=== PATIENT | female | born 1955 | race Caucasian/White ===

== ENCOUNTER → 2017-09-28 | Emergency (ER) | payer MEDICAID, OTHER ==
[~2017-09-28] VITALS: Ht 154.9 cm; Wt 74.8 kg
[~2017-09-28] MED LIST: ALPR-624 PO; LISI40TA4 PO; MELO-100 PO; PER10325T PO; normal saline 1000ML IV soln IVB ONE; ondansetron/PF 4mg/2ml inj IV ONE; oxyCODONE/APAP 10/325mg tablet PO ONE
[2017-09-28 15:04] LABS: ALANINE AMINOTRANSFERASE 75 U/L (12-78); ALBUMIN 3.6 G/DL (3.4-5.0); ALBUMIN/GLOBULIN RATIO 0.7 (1.1-1.5); ALKALINE PHOSPHATASE 51 IU/L (46-116); ANION GAP 11 (8-16); ASPARTATE AMINO TRANSFERASE 37 U/L (10-37); BILIRUBIN,TOTAL 0.3 MG/DL (0.1-1.0); BLOOD UREA NITROGEN 17 MG/DL (7-18); BUN/CREATININE RATIO 18.9 (6.6-38.0); CALCIUM 9.8 MG/DL (8.5-10.1); CHLORIDE 98 MMOL/L (99-107); GLUCOSE 165 MG/DL (70-104); LIPASE 188 U/L (73-393); POTASSIUM 4.6 MMOL/L (3.5-5.1); SODIUM 137 MMOL/L (135-145); TOTAL CARBON DIOXIDE 28.4 MMOL/L (24-32); TOTAL PROTEIN 8.8 G/DL (6.4-8.2); eGFR 64 ML/MIN
[2017-09-28 15:07] LABS: BASOPHILS # (AUTO) 0.1 X10'3 (0-0.2); BASOPHILS % (AUTO) 0.6 % (0-1); EOSINOPHILS # (AUTO) 0.2 X10'3 (0-0.9); EOSINOPHILS % (AUTO) 1.3 % (0-6); HEMATOCRIT 49.6 % (35.0-45.0); HEMOGLOBIN 17.1 g/dl (12.0-16.0); LYMPHOCYTES # (AUTO) 3.1 X10'3 (1.1-4.8); LYMPHOCYTES % (AUTO) 19.8 % (21-51); MEAN CORPUSCULAR HEMOGLOBIN 30.2 PG (27.0-31.0); MEAN CORPUSCULAR HGB CONC 34.6 % (33.0-36.5); MEAN CORPUSCULAR VOLUME 87.3 FL (78-98); MEAN PLATELET VOLUME 10.5 FL (7.4-10.4); MONOCYTES # (AUTO) 1.3 X10'3 (0-0.9); NEUTROPHILS # (AUTO) 11.1 X10'3 (1.8-7.7); NEUTROPHILS % (AUTO) 70.3 % (42-75); RED BLOOD COUNT 5.68 X10'6 (4.20-5.60); RED CELL DISTRIBUTION WIDTH 13.3 % (11.5-14.5); WHITE BLOOD COUNT 15.8 X10'3 (4.5-11.0)
[2017-09-28 15:53] LABS: PLATELET COUNT 192 X10'3 (140-440)
[2017-09-28 16:24] VITALS: BP 138/75
== END | disposition home or self-care (01) ==
LOC: ER 11:59
DX: F11.23 Opioid dependence with withdrawal (principal); M54.9 Dorsalgia, unspecified; R11.10 Vomiting, unspecified; I10 Essential (primary) hypertension; G89.29 Other chronic pain; E11.9 Type 2 diabetes mellitus without complications; M19.90 Unspecified osteoarthritis, unspecified site; Z90.710 Acquired absence of both cervix and uterus; Z90.49 Acquired absence of other specified parts of digestive tract; Z98.890 Other specified postprocedural states; Z87.891 Personal history of nicotine dependence; Z79.899 Other long term (current) drug therapy; Z56.0 Unemployment, unspecified
CPT/HCPCS: 36415; 80053; 82948; 83690; 85025; 96361; 96374; 99285; J2405; J7030

== ENCOUNTER 2017-10-10 09:31 | Emergency (ER) | payer MEDICAID, OTHER ==
[~2017-10-10] VITALS: Ht 154.9 cm; Wt 72.0 kg
[~2017-10-10 09:31] MED LIST changes: -normal saline 1000ML IV soln IVB ONE; -ondansetron/PF 4mg/2ml inj IV ONE; -oxyCODONE/APAP 10/325mg tablet PO ONE
[2017-10-10 10:00] LABS: BASOPHILS % (AUTO) 0.4 % (0-1); EOSINOPHILS # (AUTO) 0.2 X10'3 (0-0.9); EOSINOPHILS % (AUTO) 1.6 % (0-6); HEMATOCRIT 45.5 % (35.0-45.0); HEMOGLOBIN 15.6 g/dl (12.0-16.0); LYMPHOCYTES # (AUTO) 2.8 X10'3 (1.1-4.8); LYMPHOCYTES % (AUTO) 25.2 % (21-51); MEAN CORPUSCULAR HEMOGLOBIN 29.9 PG (27.0-31.0); MEAN CORPUSCULAR HGB CONC 34.3 % (33.0-36.5); MEAN CORPUSCULAR VOLUME 87.2 FL (78-98); MEAN PLATELET VOLUME 9.2 FL (7.4-10.4); MONOCYTES # (AUTO) 0.8 X10'3 (0-0.9); MONOCYTES % (AUTO) 7.2 % (2-12); NEUTROPHILS # (AUTO) 7.2 X10'3 (1.8-7.7); NEUTROPHILS % (AUTO) 65.6 % (42-75); PLATELET COUNT 243 X10'3 (140-440); RED BLOOD COUNT 5.21 X10'6 (4.20-5.60); RED CELL DISTRIBUTION WIDTH 13.5 % (11.5-14.5)
[2017-10-10 10:09] LABS: PARTIAL THROMBOPLASTIN TIME 24 SECONDS (22-32); PROTHROMBIN TIME 10.2 SECONDS (9.0-12.0)
[2017-10-10 10:13] LABS: ALANINE AMINOTRANSFERASE 59 U/L (12-78); ALBUMIN 3.7 G/DL (3.4-5.0); ALBUMIN/GLOBULIN RATIO 0.7 (1.1-1.5); ALKALINE PHOSPHATASE 53 IU/L (46-116); ANION GAP 8 (8-16); ASPARTATE AMINO TRANSFERASE 32 U/L (10-37); BILIRUBIN,TOTAL 0.3 MG/DL (0.1-1.0); BLOOD UREA NITROGEN 21 MG/DL (7-18); BUN/CREATININE RATIO 24.4 (6.6-38.0); CALCIUM 10.4 MG/DL (8.5-10.1); CHLORIDE 94 MMOL/L (99-107); CREATININE 0.86 MG/DL (0.40-0.90); GLUCOSE 247 MG/DL (70-104); POTASSIUM 4.3 MMOL/L (3.5-5.1); SODIUM 134 MMOL/L (135-145); TOTAL CARBON DIOXIDE 31.8 MMOL/L (24-32); TOTAL PROTEIN 8.8 G/DL (6.4-8.2); eGFR 67 ML/MIN
[2017-10-10] MEDS ORDERED: famotidine/PF 10 mg/ml inj IV ONE (11:30)
[2017-10-10] MEDS ORDERED: normal saline 1000ML IV soln IVB ONE (11:30)
[2017-10-10] MEDS ORDERED: oxyCODONE/APAP 10/325mg tablet PO ONE (11:30)
[2017-10-10] MEDS ORDERED: ondansetron 4mg rapidly disintigrating tab PO ONE (11:30)
[2017-10-10] MEDS ORDERED: LORazepam 2 mg/ml vial IV ONE (11:30)
[2017-10-10 13:08] LABS: CLARITY,URINE CLOUDY (Clear); COLOR,URINE YELLOW (Yellow); GLUCOSE, URINE NEGATIVE (Neg); KETONES,URINE NEGATIVE (Neg); LEUKOCYTE ESTERASE ,URINE NEGATIVE (Neg); NITRITES, URINE NEGATIVE (Neg); OCCULT BLOOD,URINE NEGATIVE (Neg); PH,URINE 5.5 (4.8-8.0); PROTEIN,URINE 100 mg/dl (Neg); UROBILINOGEN,URINE 0.2 E.U/dL (0.2-1.0)
[2017-10-10 13:19] LABS: SQUAMOUS EPITHELIAL CELL,UR MANY /LPF (FEW); UA COLLECTION TYPE CLN CATCH MIDSTREAM
[2017-10-10 13:20] LABS: BACTERIA,URINE 1+ /HPF (Neg); RBC,URINE 0-2 /HPF (0-2); WBC,URINE 0-4 /HPF (0-4)
[2017-10-10 14:17] VITALS: BP 117/76
== END 2017-10-10 14:19 | disposition home or self-care (01) ==
LOC: ER 09:31
DX: R11.2 Nausea with vomiting, unspecified (principal); R07.9 Chest pain, unspecified; M25.552 Pain in left hip; M54.9 Dorsalgia, unspecified; M54.2 Cervicalgia; M25.511 Pain in right shoulder; I10 Essential (primary) hypertension; G89.29 Other chronic pain; E11.9 Type 2 diabetes mellitus without complications; M19.90 Unspecified osteoarthritis, unspecified site; Z90.710 Acquired absence of both cervix and uterus; Z90.49 Acquired absence of other specified parts of digestive tract; Z87.891 Personal history of nicotine dependence; Z79.899 Other long term (current) drug therapy; Z56.0 Unemployment, unspecified
CPT/HCPCS: 36415; 71045; 80053; 81001; 84484; 85025; 85610; 85730; 93005; 96361; 96374; 96375; 99285; J2060; J3490; J7030

== ENCOUNTER 2017-11-28 08:46 | Emergency (ER) | payer MEDICAID ==
[~2017-11-28] VITALS: Ht 154.9 cm; Wt 83.5 kg
[2017-11-28] MEDS ORDERED: HYDROcodone/acetaminophen 10/325mg tab PO ONE (10:25)
[2017-11-28] MEDS ORDERED: CYCL-1 PO (10:32)
[2017-11-28] MEDS ORDERED: TRAM50TA2 PO (10:32)
[2017-11-28 10:56] VITALS: BP 136/86
== END 2017-11-28 10:57 | disposition home or self-care (01) ==
LOC: ER 08:46
DX: M54.5 Low back pain (principal); M25.562 Pain in left knee; N39.41 Urge incontinence; M79.89 Other specified soft tissue disorders; E11.9 Type 2 diabetes mellitus without complications; I10 Essential (primary) hypertension; G89.29 Other chronic pain; M19.90 Unspecified osteoarthritis, unspecified site; Z90.49 Acquired absence of other specified parts of digestive tract; Z90.710 Acquired absence of both cervix and uterus; Z98.890 Other specified postprocedural states; Z88.6 Allergy status to analgesic agent; Z79.899 Other long term (current) drug therapy; Z56.0 Unemployment, unspecified
CPT/HCPCS: 99284

== ENCOUNTER 2018-06-09 08:14 | Emergency (ER) | payer MEDICAID ==
[~2018-06-09] VITALS: Ht 154.9 cm; Wt 88.0 kg
[~2018-06-09 08:14] MED LIST changes: +CYCL-1 PO
[2018-06-09 09:13] VITALS: BP 132/85
[2018-06-09] MEDS ORDERED: fluconazole 150mg tablet PO ONE (10:00)
[2018-06-09] MEDS ORDERED: FLUC200T PO (10:01)
== END 2018-06-09 10:30 | disposition home or self-care (01) ==
LOC: ER 08:15
DX: B37.9 Candidiasis, unspecified (principal); I10 Essential (primary) hypertension; E11.9 Type 2 diabetes mellitus without complications; G89.29 Other chronic pain; Z90.49 Acquired absence of other specified parts of digestive tract; Z90.710 Acquired absence of both cervix and uterus; Z98.890 Other specified postprocedural states; Z56.0 Unemployment, unspecified; Z88.8 Allergy status to other drugs, medicaments and biological substances; Z79.899 Other long term (current) drug therapy
CPT/HCPCS: 82948; 99283

== ENCOUNTER 2018-07-11 13:21 | Emergency (ER) | payer MEDICAID, OTHER ==
[~2018-07-11] VITALS: Ht 154.9 cm; Wt 84.9 kg
[~2018-07-11 13:21] MED LIST changes: +FLUC200T PO; +FLUC200T2 PO
[2018-07-11] MEDS ORDERED: insulin NPH/REG insulin (NovoLIN 70/30) 10ml vial SQ ONE (14:20)
[2018-07-11] MEDS ORDERED: insulin regular, human 10 units/0.1 ml syringe SQ ONE (14:35)
[2018-07-11] MEDS ORDERED: METO-292 PO (14:56)
[2018-07-11] MEDS ORDERED: INSU100I31 SQ (14:56)
[2018-07-11] MEDS ORDERED: ondansetron/PF 4mg/2ml inj IM ONE ×2 (15:00→15:05)
[2018-07-11] MEDS ORDERED: BISA-155 PO (15:03)
[2018-07-11] MEDS ORDERED: POLY17PO10 PO (15:03)
[2018-07-11 15:33] VITALS: BP 120/88
== END 2018-07-11 15:35 | disposition home or self-care (01) ==
LOC: ER 13:22
DX: K59.00 Constipation, unspecified (principal); I10 Essential (primary) hypertension; E11.9 Type 2 diabetes mellitus without complications; G89.29 Other chronic pain; Z90.49 Acquired absence of other specified parts of digestive tract; Z90.710 Acquired absence of both cervix and uterus; Z98.890 Other specified postprocedural states; Z56.0 Unemployment, unspecified; Z88.8 Allergy status to other drugs, medicaments and biological substances; Z79.4 Long term (current) use of insulin; Z79.899 Other long term (current) drug therapy
CPT/HCPCS: 82948; 93005; 96372; 99284; J1815; J2405

== ENCOUNTER 2018-07-23 03:25 | Emergency (ER) | payer MEDICAID, OTHER ==
[~2018-07-23] VITALS: Ht 154.9 cm; Wt 89.0 kg
[~2018-07-23 03:25] MED LIST changes: +BISA-155 PO; +INSU100I31 SQ; +METO-292 PO; +POLY17PO10 PO
[2018-07-23 03:47] LABS: CLARITY,URINE CLEAR (Clear); COLOR,URINE YELLOW (Yellow); GLUCOSE, URINE >=1000 mg/dl (Neg); KETONES,URINE NEGATIVE (Neg); LEUKOCYTE ESTERASE ,URINE NEGATIVE (Neg); NITRITES, URINE NEGATIVE (Neg); OCCULT BLOOD,URINE NEGATIVE (Neg); PROTEIN,URINE NEGATIVE (Neg); UROBILINOGEN,URINE 0.2 E.U/dL (0.2-1.0)
[2018-07-23 03:51] LABS: UA COLLECTION TYPE CLN CATCH MIDSTREAM
[2018-07-23 03:52] LABS: BACTERIA,URINE FEW /HPF (Neg); RBC,URINE NONE SEEN /HPF (0-2); SQUAMOUS EPITHELIAL CELL,UR FEW /LPF (FEW); WBC,URINE 0-4 /HPF (0-4)
[2018-07-23] MEDS ORDERED: normal saline 1000ML IV soln IVB ONE (04:00)
[2018-07-23 04:01] LABS: BASOPHILS % (AUTO) 0.4 % (0-1); EOSINOPHILS # (AUTO) 0.3 X10'3 (0-0.9); EOSINOPHILS % (AUTO) 2.6 % (0-6); HEMOGLOBIN 14.7 g/dl (12.0-16.0); LYMPHOCYTES # (AUTO) 2.9 X10'3 (1.1-4.8); LYMPHOCYTES % (AUTO) 25.8 % (21-51); MEAN CORPUSCULAR HEMOGLOBIN 28.6 PG (27.0-31.0); MEAN CORPUSCULAR HGB CONC 33.5 g/dL (33.0-36.5); MEAN CORPUSCULAR VOLUME 85.4 FL (78-98); MEAN PLATELET VOLUME 9.4 FL (7.4-10.4); MONOCYTES # (AUTO) 0.8 X10'3 (0-0.9); MONOCYTES % (AUTO) 7.5 % (2-12); NEUTROPHILS % (AUTO) 63.7 % (42-75); PLATELET COUNT 238 X10'3 (140-440); RED BLOOD COUNT 5.15 X10'6 (4.20-5.60); RED CELL DISTRIBUTION WIDTH 13.6 % (11.5-14.5); WHITE BLOOD COUNT 11.1 X10'3 (4.5-11.0)
[2018-07-23 04:08] LABS: URINE HCG NEGATIVE (NEG)
[2018-07-23 04:08] LABS: INR 1.1 INR; PROTHROMBIN TIME 10.9 SECONDS (9.0-12.0)
[2018-07-23 04:10] LABS: ALANINE AMINOTRANSFERASE 77 U/L (12-78); ALBUMIN 3.4 G/DL (3.4-5.0); ALBUMIN/GLOBULIN RATIO 0.8 (1.1-1.5); ALKALINE PHOSPHATASE 48 IU/L (46-116); ANION GAP 8 (8-16); ASPARTATE AMINO TRANSFERASE 41 U/L (10-37); BILIRUBIN,TOTAL 0.3 MG/DL (0.1-1.0); BLOOD UREA NITROGEN 20 MG/DL (7-18); BUN/CREATININE RATIO 20.8 (6.6-38.0); CALCIUM 10.1 MG/DL (8.5-10.1); CHLORIDE 94 MMOL/L (99-107); CREATININE 0.96 MG/DL (0.40-0.90); GLUCOSE 208 MG/DL (70-104); POTASSIUM 4.4 MMOL/L (3.5-5.1); SODIUM 133 MMOL/L (135-145); TOTAL PROTEIN 7.5 G/DL (6.4-8.2); eGFR 59 ML/MIN
[2018-07-23 04:22] LABS: ETHANOL < 0.010 GM/DL (0.0-0.010); LIPASE 254 U/L (73-393); MAGNESIUM 1.5 MG/DL (1.5-2.4)
[2018-07-23] MEDS ORDERED: DICY10CA88 PO (04:39)
[2018-07-23] MEDS ORDERED: PHE12.5T PO (04:39)
[2018-07-23 04:40] VITALS: BP 152/84
[2018-07-23] MEDS ORDERED: dicyclomine 10mg/ml 2ml ampule IM ONE (04:40)
[2018-07-23] MEDS ORDERED: ondansetron/PF 4mg/2ml inj IV ONE (05:00)
== END 2018-07-23 05:07 | disposition home or self-care (01) ==
LOC: ER 03:26
DX: E11.43 Type 2 diabetes mellitus with diabetic autonomic (poly)neuropathy (principal); K31.84 Gastroparesis; I10 Essential (primary) hypertension; G89.29 Other chronic pain; Z90.49 Acquired absence of other specified parts of digestive tract; Z90.710 Acquired absence of both cervix and uterus; Z98.890 Other specified postprocedural states; Z56.0 Unemployment, unspecified; Z88.8 Allergy status to other drugs, medicaments and biological substances; Z79.4 Long term (current) use of insulin; Z79.899 Other long term (current) drug therapy
CPT/HCPCS: 36415; 80053; 80320; 81001; 81025; 83690; 83735; 85025; 85610; 96361; 96374; 99283; J2405; J7030

== ENCOUNTER 2018-08-10 01:03 | Emergency (ER) | payer MEDICAID, OTHER ==
[~2018-08-10] VITALS: Ht 154.9 cm; Wt 80.0 kg
[~2018-08-10 01:03] MED LIST changes: +DICY10CA88 PO; +PHE12.5T PO
[2018-08-10 01:06] VITALS: BP 177/80
--- NOTE | 2018-08-10 02:48 | NUR ---
PER DR PAREDES REQUEST, HAD PT DRINK A CUP OF WATER AND OBSERVE TO SEE IF ANY DIFFICULTY SWALLOWING. PT ABLE TO DRINK WHOLE CUP OF WATER WITHOUT DIFFICULTY ONLY COMPLAINT WAS THROAT WAS SORE.
== END 2018-08-10 03:02 | disposition home or self-care (01) ==
LOC: ER 01:04
DX: J02.9 Acute pharyngitis, unspecified (principal); I10 Essential (primary) hypertension; E11.9 Type 2 diabetes mellitus without complications; G89.29 Other chronic pain; M19.90 Unspecified osteoarthritis, unspecified site; F17.200 Nicotine dependence, unspecified, uncomplicated; Z90.49 Acquired absence of other specified parts of digestive tract; Z90.710 Acquired absence of both cervix and uterus; Z98.890 Other specified postprocedural states; Z88.6 Allergy status to analgesic agent; Z79.4 Long term (current) use of insulin; Z79.899 Other long term (current) drug therapy; Z56.0 Unemployment, unspecified
CPT/HCPCS: 99281

== ENCOUNTER 2018-08-19 21:40 | Emergency (ER) | payer MEDICAID, OTHER ==
[~2018-08-19] VITALS: Ht 154.9 cm; Wt 81.0 kg
[~2018-08-19 21:40] MED LIST changes: -POLY17PO10 PO
[2018-08-19 21:43] VITALS: BP 135/86
--- NOTE | 2018-08-19 22:45 | NUR ---
PATIENT NOT IN RAP, NOT IN LOBBY, BATHRROM LOCKED
== END 2018-08-20 00:42 | disposition left against medical advice (07) ==
LOC: ER 21:41
DX: G89.29 Other chronic pain (principal); E11.9 Type 2 diabetes mellitus without complications; I10 Essential (primary) hypertension; F41.9 Anxiety disorder, unspecified; F32.9 Major depressive disorder, single episode, unspecified; M19.90 Unspecified osteoarthritis, unspecified site; Z90.49 Acquired absence of other specified parts of digestive tract; Z90.710 Acquired absence of both cervix and uterus; Z76.0 Encounter for issue of repeat prescription; Z88.5 Allergy status to narcotic agent; Z79.899 Other long term (current) drug therapy; Z79.4 Long term (current) use of insulin; Z56.0 Unemployment, unspecified
CPT/HCPCS: 99281

== ENCOUNTER 2018-09-02 12:19 | Emergency (ER) | payer BC, MEDICAID ==
[~2018-09-02] VITALS: Ht 154.9 cm; Wt 180.0 kg
[2018-09-02] MEDS ORDERED: normal saline 1000ML IV soln IVB ONE (13:10)
[2018-09-02 13:32] LABS: BASOPHILS % (AUTO) 0.2 % (0-1); EOSINOPHILS # (AUTO) 0.2 X10'3 (0-0.9); EOSINOPHILS % (AUTO) 1.3 % (0-6); HEMATOCRIT 44.1 % (35.0-45.0); HEMOGLOBIN 14.6 g/dl (12.0-16.0); LYMPHOCYTES # (AUTO) 2.8 X10'3 (1.1-4.8); LYMPHOCYTES % (AUTO) 22.7 % (21-51); MEAN CORPUSCULAR HEMOGLOBIN 27.9 PG (27.0-31.0); MEAN CORPUSCULAR VOLUME 84.4 FL (78-98); MEAN PLATELET VOLUME 8.5 FL (7.4-10.4); MONOCYTES # (AUTO) 1.2 X10'3 (0-0.9); NEUTROPHILS % (AUTO) 65.8 % (42-75); PLATELET COUNT 260 X10'3 (140-440); RED BLOOD COUNT 5.22 X10'6 (4.20-5.60); RED CELL DISTRIBUTION WIDTH 14.8 % (11.5-14.5); WHITE BLOOD COUNT 12.1 X10'3 (4.5-11.0)
[2018-09-02 13:43] LABS: ALANINE AMINOTRANSFERASE 78 U/L (12-78); ALBUMIN 3.5 G/DL (3.4-5.0); ALBUMIN/GLOBULIN RATIO 0.7 (1.1-1.5); ALKALINE PHOSPHATASE 54 IU/L (46-116); ANION GAP 3 (8-16); ASPARTATE AMINO TRANSFERASE 42 U/L (10-37); BILIRUBIN,TOTAL 0.3 MG/DL (0.1-1.0); BLOOD UREA NITROGEN 18 MG/DL (7-18); BUN/CREATININE RATIO 23.4 (6.6-38.0); CALCIUM 9.5 MG/DL (8.5-10.1); CHLORIDE 100 MMOL/L (99-107); CREATININE 0.77 MG/DL (0.40-0.90); GLUCOSE 96 MG/DL (70-104); POTASSIUM 4.7 MMOL/L (3.5-5.1); SODIUM 134 MMOL/L (135-145); TOTAL CARBON DIOXIDE 30.9 MMOL/L (24-32); TOTAL PROTEIN 8.2 G/DL (6.4-8.2); eGFR 76 ML/MIN
[2018-09-02] MEDS ORDERED: iohexol 300mg/ml 100ml inj. ONE (13:51)
[2018-09-02] MEDS ORDERED: LORazepam 2 mg/ml vial IV ONE (13:55)
[2018-09-02] MEDS ORDERED: PRED20TA PO (15:32)
[2018-09-02 15:43] VITALS: BP 142/87
== END 2018-09-02 15:45 | disposition home or self-care (01) ==
LOC: ER 12:20
DX: R13.10 Dysphagia, unspecified (principal); M54.2 Cervicalgia; R11.10 Vomiting, unspecified; I10 Essential (primary) hypertension; E11.9 Type 2 diabetes mellitus without complications; G89.29 Other chronic pain; M19.90 Unspecified osteoarthritis, unspecified site; Z90.49 Acquired absence of other specified parts of digestive tract; Z90.710 Acquired absence of both cervix and uterus; Z98.890 Other specified postprocedural states; Z88.6 Allergy status to analgesic agent; Z79.4 Long term (current) use of insulin; Z79.899 Other long term (current) drug therapy; Z56.0 Unemployment, unspecified
CPT/HCPCS: 36415; 70491; 80053; 85025; 96361; 96374; 99284; J2060; Q9967

== ENCOUNTER 2018-09-04 00:23 | Emergency (ER) | payer BC, MEDICAID ==
[~2018-09-04] VITALS: Ht 154.9 cm; Wt 81.8 kg
[~2018-09-04 00:23] MED LIST changes: +PRED20TA PO
[2018-09-04 00:26] VITALS: BP 124/82
[2018-09-04 01:25] LABS: BASOPHILS # (AUTO) 0.1 X10'3 (0-0.2); BASOPHILS % (AUTO) 0.7 % (0-1); EOSINOPHILS # (AUTO) 0.3 X10'3 (0-0.9); EOSINOPHILS % (AUTO) 2.5 % (0-6); HEMATOCRIT 40.8 % (35.0-45.0); HEMOGLOBIN 13.4 g/dl (12.0-16.0); LYMPHOCYTES # (AUTO) 2.8 X10'3 (1.1-4.8); LYMPHOCYTES % (AUTO) 25.7 % (21-51); MEAN CORPUSCULAR HEMOGLOBIN 28.1 PG (27.0-31.0); MEAN CORPUSCULAR HGB CONC 32.8 g/dL (33.0-36.5); MEAN CORPUSCULAR VOLUME 85.7 FL (78-98); MEAN PLATELET VOLUME 9.4 FL (7.4-10.4); MONOCYTES # (AUTO) 0.9 X10'3 (0-0.9); MONOCYTES % (AUTO) 8.2 % (2-12); NEUTROPHILS # (AUTO) 6.9 X10'3 (1.8-7.7); NEUTROPHILS % (AUTO) 62.9 % (42-75); PLATELET COUNT 217 X10'3 (140-440); RED BLOOD COUNT 4.76 X10'6 (4.20-5.60); RED CELL DISTRIBUTION WIDTH 14.8 % (11.5-14.5)
[2018-09-04 01:39] LABS: LIPASE 238 U/L (73-393); TROPONIN I < 0.04 NG/ML (0.0-0.05)
[2018-09-04] MEDS ORDERED: AMOX-580 PO (01:55)
== END 2018-09-04 02:11 | disposition home or self-care (01) ==
LOC: ER 00:23
DX: J32.9 Chronic sinusitis, unspecified (principal); R11.10 Vomiting, unspecified; R10.30 Lower abdominal pain, unspecified; R07.0 Pain in throat; G89.29 Other chronic pain; M19.90 Unspecified osteoarthritis, unspecified site; I10 Essential (primary) hypertension; E11.9 Type 2 diabetes mellitus without complications; Z88.6 Allergy status to analgesic agent; Z88.8 Allergy status to other drugs, medicaments and biological substances; Z79.899 Other long term (current) drug therapy; Z79.4 Long term (current) use of insulin; Z56.0 Unemployment, unspecified; Z90.49 Acquired absence of other specified parts of digestive tract; Z90.710 Acquired absence of both cervix and uterus; Z98.890 Other specified postprocedural states
CPT/HCPCS: 36415; 83690; 84484; 85025; 93005; 99284

== ENCOUNTER 2019-01-27 10:00 | Emergency (ER) | payer MEDICAID ==
[~2019-01-27] VITALS: Ht 154.9 cm; Wt 86.4 kg
[~2019-01-27 10:00] MED LIST changes: +BUPR1PAT TOP; -PHE12.5T PO; -PRED20TA PO; +PROM12.512 PO
[2019-01-27] MEDS ORDERED: ondansetron 4mg rapidly disintigrating tab PO ONE (10:10)
[2019-01-27] MEDS ORDERED: oxyCODONE/APAP 10/325mg tablet PO ONE (10:10)
[2019-01-27] MEDS ORDERED: morphine 4 MG/ML inj SYRINge IM ONE ×2 (10:10→11:50)
[2019-01-27] MEDS ORDERED: proCHLORperazine 10 MG/2 ml inj IM ONE (10:25)
[2019-01-27] MEDS ORDERED: PER10325T PO (12:41)
[2019-01-27 12:53] VITALS: BP 178/98
== END 2019-01-27 12:56 | disposition home or self-care (01) ==
LOC: ER 10:01
DX: G89.29 Other chronic pain (principal); M25.552 Pain in left hip; I10 Essential (primary) hypertension; K21.9 Gastro-esophageal reflux disease without esophagitis; E11.9 Type 2 diabetes mellitus without complications; F41.9 Anxiety disorder, unspecified; F31.9 Bipolar disorder, unspecified; M19.90 Unspecified osteoarthritis, unspecified site; Z90.49 Acquired absence of other specified parts of digestive tract; Z90.710 Acquired absence of both cervix and uterus; Z98.890 Other specified postprocedural states; Z86.19 Personal history of other infectious and parasitic diseases; Z87.891 Personal history of nicotine dependence; Z56.0 Unemployment, unspecified; Z88.8 Allergy status to other drugs, medicaments and biological substances; Z79.4 Long term (current) use of insulin; Z79.899 Other long term (current) drug therapy
CPT/HCPCS: 96372; 99284; J0780; J2270; J2405

== ENCOUNTER 2019-02-08 06:22 | Emergency (ER) | payer MEDICAID ==
[~2019-02-08] VITALS: Ht 154.9 cm; Wt 88.0 kg
[2019-02-08] MEDS ORDERED: normal saline 1000ml 1,000 ML IV ONE (06:30)
[2019-02-08] MEDS ORDERED: proCHLORperazine 10 MG/2 ml inj IV ONE (06:30)
[2019-02-08] MEDS ORDERED: morphine 4 MG/ML inj SYRINge IV ONE ×2 (06:30→08:20)
[2019-02-08] MEDS ORDERED: oxyCODONE/APAP 5-325mg tablet PO ONE (06:30)
[2019-02-08] MEDS ORDERED: morphine 10mg/ml inj. IV ONE (06:35)
[2019-02-08] MEDS ORDERED: LORazepam 2 mg/ml vial IV ONE (08:25)
[2019-02-08] MEDS ORDERED: PER10325T PO (08:26)
--- NOTE | 2019-02-08 08:30 | NUR ---
TELEPHONE CALL TO MOTHER . TRANSPORTATION WILL BE COMING FOR PATIENT DISCHARGE.
[2019-02-08] MEDS ORDERED: oxyCODONE/APAP 10/325mg tablet PO ONE (08:35)
[2019-02-08 09:08] VITALS: BP 158/95
== END 2019-02-08 09:11 | disposition home or self-care (01) ==
LOC: ER 06:23
DX: F11.23 Opioid dependence with withdrawal (principal); R11.2 Nausea with vomiting, unspecified; I10 Essential (primary) hypertension; K21.9 Gastro-esophageal reflux disease without esophagitis; E11.9 Type 2 diabetes mellitus without complications; G89.29 Other chronic pain; M19.90 Unspecified osteoarthritis, unspecified site; Z56.0 Unemployment, unspecified; Z90.49 Acquired absence of other specified parts of digestive tract; Z90.710 Acquired absence of both cervix and uterus; Z98.890 Other specified postprocedural states; Z88.6 Allergy status to analgesic agent; Z79.899 Other long term (current) drug therapy; Z79.4 Long term (current) use of insulin
CPT/HCPCS: 82948; 96361; 96374; 96375; 96376; 99284; J0780; J2060; J2270; J7030; 93005

== ENCOUNTER 2019-06-08 23:50 | Observation (INO) | payer MEDICAID ==
[~2019-06-08] VITALS: Ht 154.9 cm; Wt 70.0 kg
[2019-06-09 02:39] LABS: ALANINE AMINOTRANSFERASE 19 U/L (12-78); ALBUMIN 3.2 G/DL (3.4-5.0); ALBUMIN/GLOBULIN RATIO 0.7 (1.1-1.5); ALKALINE PHOSPHATASE 35 IU/L (46-116); ANION GAP 10 (8-16); ASPARTATE AMINO TRANSFERASE 16 U/L (10-37); BILIRUBIN,TOTAL 0.3 MG/DL (0.1-1.0); BLOOD UREA NITROGEN 14 MG/DL (7-18); BUN/CREATININE RATIO 18.9 (6.6-38.0); CALCIUM 9.1 MG/DL (8.5-10.1); CHLORIDE 100 MMOL/L (99-107); CREATININE 0.74 MG/DL (0.40-0.90); GLUCOSE 138 MG/DL (70-104); LIPASE 73 U/L (73-393); POTASSIUM 3.9 MMOL/L (3.5-5.1); SODIUM 137 MMOL/L (135-145); TOTAL CARBON DIOXIDE 27.4 MMOL/L (24-32); TOTAL PROTEIN 7.6 G/DL (6.4-8.2); eGFR 80 ML/MIN
[2019-06-09 02:40] LABS: BASOPHILS # (AUTO) 0.1 X10'3 (0-0.2); EOSINOPHILS # (AUTO) 0.3 X10'3 (0-0.9); EOSINOPHILS % (AUTO) 3.6 % (0-6); HEMATOCRIT 37.2 % (35.0-45.0); HEMOGLOBIN 12.4 g/dl (12.0-16.0); LYMPHOCYTES # (AUTO) 1.6 X10'3 (1.1-4.8); LYMPHOCYTES % (AUTO) 20.8 % (21-51); MEAN CORPUSCULAR HEMOGLOBIN 27.2 PG (27.0-31.0); MEAN CORPUSCULAR HGB CONC 33.4 g/dL (33.0-36.5); MEAN CORPUSCULAR VOLUME 81.4 FL (78-98); MEAN PLATELET VOLUME 8.7 FL (7.4-10.4); MONOCYTES # (AUTO) 0.8 X10'3 (0-0.9); NEUTROPHILS # (AUTO) 4.9 X10'3 (1.8-7.7); NEUTROPHILS % (AUTO) 64.6 % (42-75); PLATELET COUNT 301 X10'3 (140-440); RED BLOOD COUNT 4.57 X10'6 (4.20-5.60); RED CELL DISTRIBUTION WIDTH 15.6 % (11.5-14.5); WHITE BLOOD COUNT 7.5 X10'3 (4.5-11.0)
[2019-06-09] MEDS ORDERED: LIDOcaine Viscous 15ml cup TP ONE (02:50)
[2019-06-09] MEDS ORDERED: mag hydrox/Alum hydrox/simeth 30ml oral suspension PO ONE (02:50)
--- NOTE | 2019-06-09 03:00 | NUR ---
PT UNABLE TO SWALLOW APPLESAUCE WITHOUT C/O DISCOMFORT. PO CHALLENGE FAILED. EDPA ANDERSON NOTIFIED
--- NOTE | 2019-06-09 03:07 | NUR ---
PT TALKING FULL SENTENCES. ABLE TO SWALLOW MAALOX AND VISCOUS LIDOCAINE.PT IMMEDIATELY C/O OF TIGHTNESS, EXHIBITING PANIC. THIS RN ABLE TO REDIRECT, BUT AFTER ABOUT 1 MINUTE PT THREW UP MEDS. TIBURCIO ANDERSON NOTIFIED.
--- NOTE | 2019-06-09 03:23 | NUR ---
NEW ORDER RECEIVED: REGLAN 5MG AND ATIVAN 0.5MG.
[2019-06-09] MEDS ORDERED: metoclopramide 5 mg/ml inj IV ONE (03:25)
[2019-06-09] MEDS ORDERED: LORazepam 2 mg/ml vial IV ONE (03:25)
--- NOTE | 2019-06-09 04:00 | NUR ---
PT RESPONDING TO INTERNAL STIMULI AEB TALKING AND LAUGHING WHEN NONE ARE PRESENT. PT AFFIRMS BIPOLAR DX, SAYING "I HAVEN'T TAKEN MY MEDS FOR ABOUT 5 DAYS BECAUSE I CAN'T SWALLOW." EDMD NOTIFIED.
[2019-06-09] MEDS ORDERED: diatrozoate meglu/diatrozoate sod (37% iodine) 120ML oral solution PO ONE (04:30)
[2019-06-09] MEDS ORDERED: diatr meglu/diatrizoate 30ml oral sol.-(3 dose) bottle PO ONE (05:00)
--- NOTE | 2019-06-09 05:00 | NUR ---
DISCUSSED PT'S INABILITY TO SWALLOW AND FAILED PO CHALLENGE WITH EDMD ANDERSON. GASTROGRAPHIN CANCELLED PER EDMD.
[2019-06-09 07:52] LABS: PARTIAL THROMBOPLASTIN TIME 26 SECONDS (22-32)
--- NOTE | 2019-06-09 07:55 | NUR ---
PATIENT TAKEN TO GI LAB, PER GI NURSE, VIA WC.
[2019-06-09 08:05] VITALS: BP 122/78
[2019-06-09] MEDS ORDERED: MIDAZolam 5mg/5ml vial ONE (08:29)
[2019-06-09] MEDS ORDERED: fentaNYL/PF 50MCG/1 ML 2ML syringe ONE (08:29)
[2019-06-09] MEDS ORDERED: LIDOcaine Viscous 15ml cup ONE (08:29)
[2019-06-09] MEDS ORDERED: diphenhydrAMINE 50 mg/ml inj ONE (09:10)
[2019-06-09 09:55] VITALS: BP 137/56
[2019-06-09 10:05] VITALS: BP 145/64
[2019-06-09] MEDS ORDERED: normal saline 1000ml 1,000 ML IV SCH (10:12)
[2019-06-09 10:15] VITALS: BP 112/53
[2019-06-09] MEDS ORDERED: magnesium hydroxide 30ml (MOM) UD suspension PO PRN (10:15)
[2019-06-09] MEDS ORDERED: mag hydrox/Alum hydrox/simeth 30ml oral suspension PO PRN (10:15)
[2019-06-09] MEDS ORDERED: acetaminophen 325mg tablet PO PRN (10:15)
[2019-06-09] MEDS ORDERED: morphine 2 MG/ML inj. syringe IV PRN (10:15)
[2019-06-09] MEDS ORDERED: ondansetron/PF 4mg/2ml inj IV PRN (10:15)
[2019-06-09 10:25] VITALS: BP 118/87
[2019-06-09 10:54] VITALS: BP 137/71
--- NOTE | 2019-06-09 10:58 | NUR ---
PATIENT RETURNED FROM GI LAB AND REPORT FROM NURSE. PATIENT WOULD LIKE TO BE DISCHARGED HOME, IF POSSIBLE. DR. BOLAND NOTES ON CHART. PAGE TO DR. SHAH RE: DISPOSITION POST PROCEDURE. PAGER ID: [phone] MESSAGE: ER ROOM #[id number] FROM PROCEDURE. DR. BOLAND THINKS SHE CAN BE DC'D WITH PRESCRIPTION. PLEASE CALL AALIYAH, EXT [phone]. THANK YOU
--- NOTE | 2019-06-09 11:20 | NUR ---
SPOKE WITH MD SHAH AND INFORMED HIM OF THE RESULTS OF THE GI LAB AND THAT THE GI DOCTOR STATES HE THINKS THE PT SHOULD BE ABLE TO GO HOME WITH A PRESCRIPTION FOR PROTONIX. MD SHAH SAYS THE PT CAN HAVE SOME CLEAR LIQUIDS AND HE WILL BE DOWN IN A LITTLE TO RE-EVALUATE HER. NURSE AALIYAH AWARE.
[2019-06-09] MEDS ORDERED: pantoprazole 40 MG vial IV SCH (20:00)
[2019-06-09] MEDS ORDERED: heparin, porcine 5000 units/ml vial SQ SCH (20:00)
== END 2019-06-09 13:42 | disposition home or self-care (01) ==
LOC: ER 23:51 → ED HOLD 06-09 10:12
PROVIDERS: ADMIT Family Medicine; ATTEND Family Medicine
DX: K22.2 Esophageal obstruction (principal); K21.0 Gastro-esophageal reflux disease with esophagitis; F31.9 Bipolar disorder, unspecified; F41.0 Panic disorder [episodic paroxysmal anxiety]; G89.4 Chronic pain syndrome; E11.9 Type 2 diabetes mellitus without complications; I10 Essential (primary) hypertension; M54.9 Dorsalgia, unspecified; I20.9 Angina pectoris, unspecified; F03.90 Unspecified dementia, unspecified severity, without behavioral disturbance, psychotic disturbance, mood disturbance, and anxiety; M19.90 Unspecified osteoarthritis, unspecified site; Z90.49 Acquired absence of other specified parts of digestive tract; Z90.710 Acquired absence of both cervix and uterus; Z79.4 Long term (current) use of insulin; Z79.899 Other long term (current) drug therapy; Z88.6 Allergy status to analgesic agent
CPT/HCPCS: 36415; 43239; 43248; 70490; 71045; 80053; 83690; 85025; 85610; 85730; 93005; 96374; 96375; 99284; G0378; J1200; J2060; J2250; J2765; J3010; J7040; 99152; 99153; 99285; A4620; Q9963

== ENCOUNTER 2019-07-03 11:19 | Emergency (ER) | payer MEDICAID ==
[~2019-07-03] VITALS: Ht 154.9 cm; Wt 66.4 kg
[2019-07-03] MEDS ORDERED: morphine 4 MG/ML inj SYRINge IV ONE (12:25)
[2019-07-03] MEDS ORDERED: normal saline 1000ML IV soln IVB ONE (12:25)
[2019-07-03] MEDS ORDERED: ondansetron/PF 4mg/2ml inj IV ONE (12:25)
[2019-07-03 13:13] LABS: BASOPHILS # (AUTO) 0.1 X10'3 (0-0.2); BASOPHILS % (AUTO) 0.8 % (0-1); EOSINOPHILS # (AUTO) 0.2 X10'3 (0-0.9); EOSINOPHILS % (AUTO) 1.4 % (0-6); HEMATOCRIT 38.8 % (35.0-45.0); HEMOGLOBIN 12.9 g/dl (12.0-16.0); LYMPHOCYTES # (AUTO) 3.4 X10'3 (1.1-4.8); LYMPHOCYTES % (AUTO) 25.9 % (21-51); MEAN CORPUSCULAR HEMOGLOBIN 26.6 PG (27.0-31.0); MEAN CORPUSCULAR HGB CONC 33.3 g/dL (33.0-36.5); MEAN CORPUSCULAR VOLUME 79.7 FL (78-98); MEAN PLATELET VOLUME 8.3 FL (7.4-10.4); MONOCYTES # (AUTO) 1.1 X10'3 (0-0.9); MONOCYTES % (AUTO) 8.1 % (2-12); NEUTROPHILS # (AUTO) 8.4 X10'3 (1.8-7.7); NEUTROPHILS % (AUTO) 63.8 % (42-75); PLATELET COUNT 331 X10'3 (140-440); RED BLOOD COUNT 4.87 X10'6 (4.20-5.60); RED CELL DISTRIBUTION WIDTH 15.8 % (11.5-14.5); WHITE BLOOD COUNT 13.1 X10'3 (4.5-11.0)
[2019-07-03 13:30] LABS: ALANINE AMINOTRANSFERASE 15 U/L (12-78); ALBUMIN 3.2 G/DL (3.4-5.0); ALBUMIN/GLOBULIN RATIO 0.8 (1.1-1.5); ALKALINE PHOSPHATASE 36 IU/L (46-116); ANION GAP 9 (8-16); ASPARTATE AMINO TRANSFERASE 14 U/L (10-37); BILIRUBIN,TOTAL 0.3 MG/DL (0.1-1.0); BLOOD UREA NITROGEN 7 MG/DL (7-18); BUN/CREATININE RATIO 11.1 (6.6-38.0); CALCIUM 8.6 MG/DL (8.5-10.1); CHLORIDE 99 MMOL/L (99-107); CREATININE 0.63 MG/DL (0.40-0.90); GLUCOSE 103 MG/DL (70-104); LIPASE 83 U/L (73-393); POTASSIUM 3.8 MMOL/L (3.5-5.1); SODIUM 138 MMOL/L (135-145); TOTAL CARBON DIOXIDE 29.8 MMOL/L (24-32); TOTAL PROTEIN 7.4 G/DL (6.4-8.2); eGFR > 90 ML/MIN
--- NOTE | 2019-07-03 13:58 | NUR ---
Provider notified of pt's request for additional pain medication, no new orders at this time.
[2019-07-03] MEDS ORDERED: fentaNYL/PF 50MCG/1 ML 2ML syringe IV ONE (14:20)
[2019-07-03 14:53] LABS: CLARITY,URINE SLIGHTLY CLOUDY (Clear); COLOR,URINE YELLOW (Yellow); GLUCOSE, URINE NEGATIVE (Neg); KETONES,URINE NEGATIVE (Neg); LEUKOCYTE ESTERASE ,URINE NEGATIVE (Neg); NITRITES, URINE NEGATIVE (Neg); OCCULT BLOOD,URINE NEGATIVE (Neg); PROTEIN,URINE NEGATIVE (Neg); UROBILINOGEN,URINE 0.2 E.U/dL (0.2-1.0)
[2019-07-03 14:54] LABS: UA COLLECTION TYPE OTHER
[2019-07-03 15:00] LABS: MUCUS STRANDS FEW /LPF (Neg); SQUAMOUS EPITHELIAL CELL,UR MANY /LPF (FEW)
[2019-07-03 15:01] LABS: BACTERIA,URINE 2+ /HPF (Neg); RBC,URINE 0-2 /HPF (0-2); WBC,URINE 0-4 /HPF (0-4)
[2019-07-03] MEDS ORDERED: ONDA4TAB12 PO (15:22)
[2019-07-03 15:33] VITALS: BP 170/96
== END 2019-07-03 15:35 | disposition home or self-care (01) ==
LOC: ER 11:19
DX: R11.2 Nausea with vomiting, unspecified (principal); R19.7 Diarrhea, unspecified; R10.30 Lower abdominal pain, unspecified; F11.23 Opioid dependence with withdrawal; I10 Essential (primary) hypertension; K21.9 Gastro-esophageal reflux disease without esophagitis; E11.9 Type 2 diabetes mellitus without complications; G89.29 Other chronic pain; M19.90 Unspecified osteoarthritis, unspecified site; F41.9 Anxiety disorder, unspecified; F31.9 Bipolar disorder, unspecified; Z86.19 Personal history of other infectious and parasitic diseases; Z90.49 Acquired absence of other specified parts of digestive tract; Z90.710 Acquired absence of both cervix and uterus; Z98.890 Other specified postprocedural states; Z87.891 Personal history of nicotine dependence; Z56.0 Unemployment, unspecified; Z88.8 Allergy status to other drugs, medicaments and biological substances; Z79.4 Long term (current) use of insulin; Z79.899 Other long term (current) drug therapy
CPT/HCPCS: 36415; 80053; 81001; 83690; 85025; 93005; 96361; 96374; 96375; 99284; J2270; J2405; J3010; J7030

== ENCOUNTER 2019-07-26 12:46 | Emergency (ER) | payer MEDICAID ==
[~2019-07-26] VITALS: Ht 154.9 cm; Wt 68.2 kg
[~2019-07-26 12:46] MED LIST changes: +ONDA4TAB12 PO
[2019-07-26] MEDS ORDERED: normal saline 1000ML IV soln IVB ONE (12:55)
[2019-07-26] MEDS ORDERED: ondansetron/PF 4mg/2ml inj IV ONE (12:55)
[2019-07-26 13:19] LABS: BASOPHILS # (AUTO) 0.1 X10'3 (0-0.2); BASOPHILS % (AUTO) 0.7 % (0-1); EOSINOPHILS % (AUTO) 0 % (0-6); HEMATOCRIT 37.5 % (35.0-45.0); HEMOGLOBIN 12.4 g/dl (12.0-16.0); LYMPHOCYTES # (AUTO) 1.1 X10'3 (1.1-4.8); LYMPHOCYTES % (AUTO) 7.6 % (21-51); MEAN CORPUSCULAR HEMOGLOBIN 25.8 PG (27.0-31.0); MEAN CORPUSCULAR HGB CONC 33.2 g/dL (33.0-36.5); MEAN CORPUSCULAR VOLUME 77.8 FL (78-98); MEAN PLATELET VOLUME 7.8 FL (7.4-10.4); MONOCYTES # (AUTO) 0.4 X10'3 (0-0.9); MONOCYTES % (AUTO) 2.7 % (2-12); NEUTROPHILS # (AUTO) 12.9 X10'3 (1.8-7.7); PLATELET COUNT 334 X10'3 (140-440); RED BLOOD COUNT 4.82 X10'6 (4.20-5.60); WHITE BLOOD COUNT 14.5 X10'3 (4.5-11.0)
[2019-07-26 13:44] LABS: ALANINE AMINOTRANSFERASE 10 U/L (12-78); ALBUMIN/GLOBULIN RATIO 0.7 (1.1-1.5); ALKALINE PHOSPHATASE 34 IU/L (46-116); ANION GAP 7 (8-16); ASPARTATE AMINO TRANSFERASE 12 U/L (10-37); BILIRUBIN,TOTAL 0.2 MG/DL (0.1-1.0); BLOOD UREA NITROGEN 12 MG/DL (7-18); BUN/CREATININE RATIO 17.4 (6.6-38.0); CALCIUM 8.7 MG/DL (8.5-10.1); CHLORIDE 100 MMOL/L (99-107); CREATININE 0.69 MG/DL (0.40-0.90); GLUCOSE 164 MG/DL (70-104); LIPASE 72 U/L (73-393); SODIUM 134 MMOL/L (135-145); TOTAL PROTEIN 7.6 G/DL (6.4-8.2); eGFR 86 ML/MIN
[2019-07-26] MEDS ORDERED: famotidine/PF 10 mg/ml inj IV ONE (13:55)
[2019-07-26] MEDS ORDERED: pantoprazole 40 MG vial IV ONE (13:55)
[2019-07-26] MEDS ORDERED: metoclopramide 5 mg/ml inj IV ONE (13:55)
--- NOTE | 2019-07-26 14:54 | NUR ---
Pt assisted to the bedside commode to void. Pt reports the nausea is improved but is moaning and grunting continually for abd pain.
[2019-07-26 15:40] LABS: CLARITY,URINE CLEAR (Clear); COLOR,URINE YELLOW (Yellow); GLUCOSE, URINE NEGATIVE (Neg); KETONES,URINE TRACE mg/dl (Neg); LEUKOCYTE ESTERASE ,URINE NEGATIVE (Neg); NITRITES, URINE NEGATIVE (Neg); OCCULT BLOOD,URINE NEGATIVE (Neg); PROTEIN,URINE TRACE mg/dl (Neg); UROBILINOGEN,URINE 0.2 E.U/dL (0.2-1.0)
[2019-07-26 15:45] LABS: UA COLLECTION TYPE NON-SPECIFIED
[2019-07-26 15:46] LABS: BACTERIA,URINE FEW /HPF (Neg); MUCUS STRANDS NONE SEEN /LPF (Neg); RBC,URINE NONE SEEN /HPF (0-2); SQUAMOUS EPITHELIAL CELL,UR FEW /LPF (FEW); WBC,URINE NONE SEEN /HPF (0-4)
[2019-07-26 15:57] VITALS: BP 193/103
== END 2019-07-26 16:05 | disposition home or self-care (01) ==
LOC: ER 12:47
DX: K52.9 Noninfective gastroenteritis and colitis, unspecified (principal); I10 Essential (primary) hypertension; K21.9 Gastro-esophageal reflux disease without esophagitis; E11.9 Type 2 diabetes mellitus without complications; G89.29 Other chronic pain; F41.9 Anxiety disorder, unspecified; F31.9 Bipolar disorder, unspecified; M19.90 Unspecified osteoarthritis, unspecified site; Z90.49 Acquired absence of other specified parts of digestive tract; Z90.710 Acquired absence of both cervix and uterus; Z98.890 Other specified postprocedural states; Z56.0 Unemployment, unspecified; Z88.8 Allergy status to other drugs, medicaments and biological substances; Z79.4 Long term (current) use of insulin; Z79.899 Other long term (current) drug therapy
CPT/HCPCS: 36415; 80053; 81001; 83690; 85025; 96361; 96374; 96375; 99284; C9113; J2405; J2765; J3490; J7030

== ENCOUNTER 2019-09-25 07:51 | Emergency (ER) | payer MEDICARE, MEDICAID ==
[~2019-09-25] VITALS: Ht 154.9 cm; Wt 61.0 kg
[2019-09-25] MEDS ORDERED: cloNIDine 0.1 mg tablet PO ONE (08:00)
[2019-09-25] MEDS ORDERED: normal saline 1000ML IV soln IVB ONE ×2 (08:00→09:20)
[2019-09-25] MEDS ORDERED: ondansetron/PF 4mg/2ml inj IV ONE (08:00)
[2019-09-25 08:15] LABS: BASOPHILS # (AUTO) 0.1 X10'3 (0-0.2); BASOPHILS % (AUTO) 0.4 % (0-1); EOSINOPHILS % (AUTO) 0.1 % (0-6); HEMATOCRIT 28.5 % (35.0-45.0); HEMOGLOBIN 9.1 g/dl (12.0-16.0); LYMPHOCYTES % (AUTO) 5.8 % (21-51); MEAN CORPUSCULAR HEMOGLOBIN 23.4 PG (27.0-31.0); MEAN CORPUSCULAR HGB CONC 31.9 g/dL (33.0-36.5); MEAN CORPUSCULAR VOLUME 73.4 FL (78-98); MEAN PLATELET VOLUME 8.5 FL (7.4-10.4); MONOCYTES # (AUTO) 0.4 X10'3 (0-0.9); MONOCYTES % (AUTO) 2.7 % (2-12); NEUTROPHILS # (AUTO) 15.1 X10'3 (1.8-7.7); PLATELET COUNT 375 X10'3 (140-440); RED BLOOD COUNT 3.89 X10'6 (4.20-5.60); RED CELL DISTRIBUTION WIDTH 17.4 % (11.5-14.5); WHITE BLOOD COUNT 16.5 X10'3 (4.5-11.0)
[2019-09-25 08:30] LABS: ALANINE AMINOTRANSFERASE 10 U/L (12-78); ALBUMIN 3.6 G/DL (3.4-5.0); ALBUMIN/GLOBULIN RATIO 0.8 (1.1-1.5); ALKALINE PHOSPHATASE 42 IU/L (46-116); ANION GAP 10 (8-16); ASPARTATE AMINO TRANSFERASE 19 U/L (10-37); BILIRUBIN,TOTAL 0.2 MG/DL (0.1-1.0); BLOOD UREA NITROGEN 8 MG/DL (7-18); BUN/CREATININE RATIO 12.3 (6.6-38.0); CHLORIDE 100 MMOL/L (99-107); CREATININE 0.65 MG/DL (0.40-0.90); GLUCOSE 170 MG/DL (70-104); LIPASE 74 U/L (73-393); POTASSIUM 3.9 MMOL/L (3.5-5.1); SODIUM 138 MMOL/L (135-145); TOTAL CARBON DIOXIDE 27.6 MMOL/L (24-32); eGFR > 90 ML/MIN
[2019-09-25] MEDS ORDERED: morphine 4 MG/ML inj SYRINge IV ONE (08:40)
--- NOTE | 2019-09-25 09:28 | NUR ---
pt tolerating po, drank 80z of water. pt also eating crackers. pt states "feeling much better"
[2019-09-25 10:12] VITALS: BP 190/85
[2019-10-01] MEDS ORDERED: OMEP40CA13 PO (15:25)
[2019-10-01] MEDS ORDERED: ASCO-134 PO (15:25)
[2019-10-01] MEDS ORDERED: PANT40TA4 PO (15:25)
[2019-10-01] MEDS ORDERED: DOXE25CA3 PO (15:25)
[2019-10-01] MEDS ORDERED: METF-438 PO (15:25)
[2019-10-01] MEDS ORDERED: IBUP-1986 PO (15:25)
[2019-10-01] MEDS ORDERED: ASPI-1468 PO (15:25)
[2019-10-01] MEDS ORDERED: ALPR1TAB7 PO (15:25)
== END 2019-09-25 10:14 | disposition home or self-care (01) ==
LOC: ER 07:52
DX: F11.23 Opioid dependence with withdrawal (principal); T40.2X5A Adverse effect of other opioids, initial encounter; R19.7 Diarrhea, unspecified; I10 Essential (primary) hypertension; K21.9 Gastro-esophageal reflux disease without esophagitis; E11.9 Type 2 diabetes mellitus without complications; G89.29 Other chronic pain; F41.9 Anxiety disorder, unspecified; F31.9 Bipolar disorder, unspecified; Z90.49 Acquired absence of other specified parts of digestive tract; Z90.710 Acquired absence of both cervix and uterus; Z98.890 Other specified postprocedural states; Z56.0 Unemployment, unspecified; Z88.8 Allergy status to other drugs, medicaments and biological substances; Z79.4 Long term (current) use of insulin; Z79.899 Other long term (current) drug therapy; Y92.89 Other specified places as the place of occurrence of the external cause
CPT/HCPCS: 36415; 80053; 83690; 85025; 93005; 96361; 96374; 96375; 99284; J2270; J2405; J7030

== ENCOUNTER 2019-09-29 11:17 | Emergency (ER) | payer MEDICARE, MEDICAID ==
[~2019-09-29] VITALS: Ht 154.9 cm; Wt 56.8 kg
[2019-09-29] MEDS ORDERED: ondansetron/PF 4mg/2ml inj IV ONE (13:20)
[2019-09-29] MEDS ORDERED: normal saline 1000ML IV soln IVB ONE (13:20)
[2019-09-29 13:30] VITALS: BP 129/82
[2019-09-29 13:51] LABS: BASOPHILS # (AUTO) 0.1 X10'3 (0-0.2); EOSINOPHILS # (AUTO) 0.1 X10'3 (0-0.9); EOSINOPHILS % (AUTO) 0.8 % (0-6); HEMATOCRIT 32.7 % (35.0-45.0); HEMOGLOBIN 10.4 g/dl (12.0-16.0); LYMPHOCYTES # (AUTO) 3.8 X10'3 (1.1-4.8); LYMPHOCYTES % (AUTO) 28.5 % (21-51); MEAN CORPUSCULAR HEMOGLOBIN 22.8 PG (27.0-31.0); MEAN CORPUSCULAR HGB CONC 31.7 g/dL (33.0-36.5); MEAN CORPUSCULAR VOLUME 71.9 FL (78-98); MEAN PLATELET VOLUME 8.3 FL (7.4-10.4); MONOCYTES # (AUTO) 1.4 X10'3 (0-0.9); MONOCYTES % (AUTO) 10.7 % (2-12); NEUTROPHILS # (AUTO) 7.8 X10'3 (1.8-7.7); PLATELET COUNT 463 X10'3 (140-440); RED BLOOD COUNT 4.55 X10'6 (4.20-5.60); RED CELL DISTRIBUTION WIDTH 17.3 % (11.5-14.5); WHITE BLOOD COUNT 13.2 X10'3 (4.5-11.0)
[2019-09-29 14:01] LABS: ALANINE AMINOTRANSFERASE 12 U/L (12-78); ALBUMIN 3.5 G/DL (3.4-5.0); ALBUMIN/GLOBULIN RATIO 0.9 (1.1-1.5); ALKALINE PHOSPHATASE 38 IU/L (46-116); ANION GAP 8 (8-16); ASPARTATE AMINO TRANSFERASE 14 U/L (10-37); BILIRUBIN,TOTAL 0.2 MG/DL (0.1-1.0); BLOOD UREA NITROGEN 14 MG/DL (7-18); CALCIUM 8.8 MG/DL (8.5-10.1); CHLORIDE 98 MMOL/L (99-107); GLUCOSE 107 MG/DL (70-104); POTASSIUM 3.3 MMOL/L (3.5-5.1); SODIUM 134 MMOL/L (135-145); TOTAL CARBON DIOXIDE 27.8 MMOL/L (24-32); TOTAL PROTEIN 7.6 G/DL (6.4-8.2); eGFR 85 ML/MIN
[2019-10-01] MEDS ORDERED: METF-438 PO (15:25)
[2019-10-01] MEDS ORDERED: PANT40TA4 PO (15:25)
[2019-10-01] MEDS ORDERED: ALPR1TAB7 PO (15:25)
[2019-10-01] MEDS ORDERED: ASPI-1468 PO (15:25)
[2019-10-01] MEDS ORDERED: OMEP40CA13 PO (15:25)
[2019-10-01] MEDS ORDERED: IBUP-1986 PO (15:25)
[2019-10-01] MEDS ORDERED: DOXE25CA3 PO (15:25)
[2019-10-01] MEDS ORDERED: ASCO-134 PO (15:25)
== END 2019-09-29 14:15 | disposition home or self-care (01) ==
LOC: ER 11:18
DX: M25.552 Pain in left hip (principal); G89.29 Other chronic pain; R11.2 Nausea with vomiting, unspecified; E86.0 Dehydration; F03.90 Unspecified dementia, unspecified severity, without behavioral disturbance, psychotic disturbance, mood disturbance, and anxiety; I10 Essential (primary) hypertension; K21.9 Gastro-esophageal reflux disease without esophagitis; E11.9 Type 2 diabetes mellitus without complications; F41.9 Anxiety disorder, unspecified; F31.9 Bipolar disorder, unspecified; Z90.49 Acquired absence of other specified parts of digestive tract; Z90.710 Acquired absence of both cervix and uterus; Z98.890 Other specified postprocedural states; Z56.0 Unemployment, unspecified; Z88.8 Allergy status to other drugs, medicaments and biological substances; Z79.82 Long term (current) use of aspirin; Z79.899 Other long term (current) drug therapy
CPT/HCPCS: 36415; 80053; 85025; 96361; 96374; 99284; J2405; J7030

== ENCOUNTER 2020-05-14 11:26 | Emergency (ER) | payer MEDICARE, MEDICAID ==
[~2020-05-14] VITALS: Ht 154.9 cm; Wt 78.7 kg
[~2020-05-14 11:26] MED LIST changes: -ALPR-624 PO; +ALPR1TAB7 PO; +ASCO-134 PO; +ASPI-1468 PO; -BISA-155 PO; -BUPR1PAT TOP; -CYCL-1 PO; -DICY10CA88 PO; +DOXE25CA3 PO; -FLUC200T PO; -FLUC200T2 PO; +IBUP-1986 PO; -INSU100I31 SQ; -LISI40TA4 PO; -MELO-100 PO; +METF-438 PO; -METO-292 PO; +OMEP40CA13 PO; -ONDA4TAB12 PO; +PANT40TA54 PO; -PER10325T PO; -PROM12.512 PO
[2020-05-14 12:13] VITALS: BP 149/84
[2020-05-14] MEDS ORDERED: AMOX-422 PO (14:12)
== END 2020-05-14 14:25 | disposition home or self-care (01) ==
LOC: ER 11:26
DX: J01.00 Acute maxillary sinusitis, unspecified (principal); J34.89 Other specified disorders of nose and nasal sinuses; R09.81 Nasal congestion; I10 Essential (primary) hypertension; K21.9 Gastro-esophageal reflux disease without esophagitis; E11.9 Type 2 diabetes mellitus without complications; G89.29 Other chronic pain; F41.9 Anxiety disorder, unspecified; F31.9 Bipolar disorder, unspecified; F17.200 Nicotine dependence, unspecified, uncomplicated; Z86.19 Personal history of other infectious and parasitic diseases; Z90.89 Acquired absence of other organs; Z90.710 Acquired absence of both cervix and uterus; Z98.890 Other specified postprocedural states; Z56.0 Unemployment, unspecified; Z88.8 Allergy status to other drugs, medicaments and biological substances; Z79.2 Long term (current) use of antibiotics; Z79.82 Long term (current) use of aspirin; Z79.899 Other long term (current) drug therapy
CPT/HCPCS: 99284

== ENCOUNTER 2022-10-05 11:07 | Emergency (ER) | payer MEDICARE, MEDICAID ==
[~2022-10-05] VITALS: Ht 154.9 cm; Wt 80.0 kg
[~2022-10-05 11:07] MED LIST changes: -OMEP40CA13 PO; +OMEP40CA21 PO
[2022-10-05] MEDS ORDERED: normal saline 1000ml 1,000 ML IV ONE (15:05)
[2022-10-05 15:47] LABS: COLOR,URINE YELLOW (Yellow); GLUCOSE, URINE NEGATIVE (Neg); KETONES,URINE 15 mg/dl (Neg); LEUKOCYTE ESTERASE ,URINE SMALL (Neg); NITRITES, URINE NEGATIVE (Neg); OCCULT BLOOD,URINE NEGATIVE (Neg); PROTEIN,URINE NEGATIVE (Neg); UROBILINOGEN,URINE 0.2 E.U/dL (0.2-1.0)
[2022-10-05 15:53] LABS: UA COLLECTION TYPE CLN CATCH MIDSTREAM
[2022-10-05 15:54] LABS: CLARITY,URINE SLIGHTLY CLOUDY (Clear)
[2022-10-05 15:56] LABS: BACTERIA,URINE FEW /HPF (Neg); RBC,URINE NONE SEEN /HPF (0-2)
[2022-10-05 15:57] LABS: SQUAMOUS EPITHELIAL CELL,UR FEW /LPF (FEW); TRANSITIONAL EPI CELLS,URINE FEW /HPF
[2022-10-05 15:59] LABS: BASOPHILS # (AUTO) 0.1 X10'3 (0-0.2); BASOPHILS % (AUTO) 0.3 % (0-1); EOSINOPHILS # (AUTO) 0.3 X10'3 (0-0.9); EOSINOPHILS % (AUTO) 1.5 % (0-6); HEMATOCRIT 44.1 % (35.0-45.0); HEMOGLOBIN 14.7 g/dl (12.0-16.0); LYMPHOCYTES # (AUTO) 1.9 X10'3 (1.1-4.8); LYMPHOCYTES % (AUTO) 10.1 % (21-51); MEAN CORPUSCULAR HEMOGLOBIN 29.2 PG (27.0-31.0); MEAN CORPUSCULAR HGB CONC 33.4 g/dL (33.0-36.5); MEAN CORPUSCULAR VOLUME 87.4 FL (78-98); MEAN PLATELET VOLUME 9.4 FL (7.4-10.4); MONOCYTES # (AUTO) 1.4 X10'3 (0-0.9); MONOCYTES % (AUTO) 7.6 % (2-12); NEUTROPHILS # (AUTO) 15.1 X10'3 (1.8-7.7); NEUTROPHILS % (AUTO) 80.5 % (42-75); PLATELET COUNT 208 X10'3 (140-440); RED BLOOD COUNT 5.04 X10'6 (4.20-5.60); RED CELL DISTRIBUTION WIDTH 14.2 % (11.5-14.5); WHITE BLOOD COUNT 18.8 X10'3 (4.5-11.0)
[2022-10-05] MEDS ORDERED: CefTRIAXone/D5W-Rocephin 1gm 50 ML IV ONE (16:30)
[2022-10-05] MEDS ORDERED: morphine 4 MG/ML inj SYRINge IV ONE (17:05)
[2022-10-05 17:18] VITALS: BP 161/128
[2022-10-05 17:27] LABS: ALANINE AMINOTRANSFERASE 22 U/L (12-78); ALBUMIN 3.4 G/DL (3.4-5.0); ALBUMIN/GLOBULIN RATIO 0.8 (1.1-1.5); ALKALINE PHOSPHATASE 48 IU/L (46-116); ANION GAP 8 (8-16); ASPARTATE AMINO TRANSFERASE 20 U/L (10-37); BILIRUBIN,TOTAL 0.5 MG/DL (0.1-1.0); BLOOD UREA NITROGEN 4 MG/DL (7-18); BUN/CREATININE RATIO 7.8 (10.0-20.0); CALCIUM 8.8 MG/DL (8.5-10.1); CHLORIDE 97 MMOL/L (99-107); CREATININE 0.51 MG/DL (0.40-0.90); GLUCOSE 158 MG/DL (70-104); LIPASE 55 U/L (73-393); SODIUM 135 MMOL/L (135-145); TOTAL CARBON DIOXIDE 29.6 MMOL/L (24-32); TOTAL PROTEIN 7.8 G/DL (6.4-8.2); eGFR > 90 ML/MIN
[2022-10-05 17:40] LABS: POTASSIUM 3.8 MMOL/L (3.5-5.1)
[2022-10-05] MEDS ORDERED: CEPH-585 PO (18:40)
== END 2022-10-05 18:59 | disposition home or self-care (01) ==
LOC: ER 11:08
DX: N39.0 Urinary tract infection, site not specified (principal); K59.00 Constipation, unspecified; I10 Essential (primary) hypertension; K21.9 Gastro-esophageal reflux disease without esophagitis; G89.29 Other chronic pain; M54.9 Dorsalgia, unspecified; F32.A Depression, unspecified; Z90.49 Acquired absence of other specified parts of digestive tract; Z59.00 Homelessness unspecified; Z88.6 Allergy status to analgesic agent; Z79.899 Other long term (current) drug therapy; Z79.1 Long term (current) use of non-steroidal anti-inflammatories (NSAID); Z79.2 Long term (current) use of antibiotics
CPT/HCPCS: 36415; 74018; 80053; 81001; 83690; 85025; 87088; 96365; 96375; 99284; J0696; J2270; J7030

== ENCOUNTER 2024-01-18 09:13 | Outpatient (CLI) | payer BC, MEDICAID ==
[~2024-01-18 09:13] MED LIST changes: +ATOR40TA72 PO; +CARV3.122 PO; +DOCU-262 PO; +HYDR25TA4 PO; +INSU100I31; +METF-1203 PO; +METO5TAB98 PO; +ONDA-243; +PROM25TA14; +SUCR1TAB PO
[2024-01-18 10:18] LABS: ALBUMIN 3.4 G/DL (3.4-5.0); ANION GAP 6 (8-16); BLOOD UREA NITROGEN 13 MG/DL (7-18); BUN/CREATININE RATIO 17.3 (10.0-20.0); CALCIUM 8.6 MG/DL (8.5-10.1); CHLORIDE 99 MMOL/L (99-107); CREATININE 0.75 MG/DL (0.40-0.90); GLUCOSE 204 MG/DL (70-104); POTASSIUM 3.9 MMOL/L (3.5-5.1); SODIUM 136 MMOL/L (135-145); TOTAL CARBON DIOXIDE 30.7 MMOL/L (24-32); eGFR 77 ML/MIN
[2024-01-18] MEDS ORDERED: iohexol 350MG/ML 100ml bottle IV ONE (10:28)
[2024-01-18] MEDS ORDERED: iohexol 350 MG/ML 50ML vial IV ONE (10:28)
== END 2024-01-18 23:59 | disposition home or self-care (01) ==
LOC: RAD 09:13
PROVIDERS: ATTEND Internal Medicine Interventional Cardiology
DX: I70.213 Atherosclerosis of native arteries of extremities with intermittent claudication, bilateral legs (principal); I65.23 Occlusion and stenosis of bilateral carotid arteries; I70.293 Other atherosclerosis of native arteries of extremities, bilateral legs; I70.0 Atherosclerosis of aorta; I51.7 Cardiomegaly; J98.11 Atelectasis; K44.9 Diaphragmatic hernia without obstruction or gangrene; K76.0 Fatty (change of) liver, not elsewhere classified; M51.36 Other intervertebral disc degeneration, lumbar region; M47.816 Spondylosis without myelopathy or radiculopathy, lumbar region; Z98.82 Breast implant status; Z96.643 Presence of artificial hip joint, bilateral
CPT/HCPCS: 36415; 75635; 80048; Q9967

== ENCOUNTER 2024-01-30 15:20 | Emergency (ER) | payer BC, MEDICAID ==
[~2024-01-30] VITALS: Ht 154.9 cm; Wt 74.0 kg
[2024-01-30] MEDS: ketorolac trometh 30MG/ML vial 30 MG/ML VIAL IV ONE (15:48)
[2024-01-30 16:09] LABS: BASOPHILS # (AUTO) 0.1 X10'3 (0-0.2); BASOPHILS % (AUTO) 0.9 % (0-1); EOSINOPHILS # (AUTO) 0.4 X10'3 (0-0.9); EOSINOPHILS % (AUTO) 4.8 % (0-6); HEMATOCRIT 43.5 % (35.0-45.0); HEMOGLOBIN 14.4 g/dl (12.0-16.0); LYMPHOCYTES # (AUTO) 2.1 X10'3 (1.1-4.8); LYMPHOCYTES % (AUTO) 28.7 % (21-51); MEAN CORPUSCULAR HEMOGLOBIN 29.2 PG (27.0-31.0); MEAN CORPUSCULAR HGB CONC 33.2 g/dL (33.0-36.5); MEAN PLATELET VOLUME 9.3 FL (7.4-10.4); MONOCYTES # (AUTO) 0.7 X10'3 (0-0.9); MONOCYTES % (AUTO) 9.2 % (2-12); NEUTROPHILS # (AUTO) 4.2 X10'3 (1.8-7.7); NEUTROPHILS % (AUTO) 56.4 % (42-75); PLATELET COUNT 223 X10'3 (140-440); RED BLOOD COUNT 4.94 X10'6 (4.20-5.60); RED CELL DISTRIBUTION WIDTH 14.9 % (11.5-14.5); WHITE BLOOD COUNT 7.5 X10'3 (4.5-11.0)
[2024-01-30] MEDS: proCHLORperazine 10 MG/2 ml inj IV ONE (16:10)
[2024-01-30 16:16] LABS: ALBUMIN 3.8 G/DL (3.4-5.0); ANION GAP 9 (8-16); APTT 29 SECONDS (22-32); BLOOD UREA NITROGEN 7 MG/DL (7-18); BUN/CREATININE RATIO 11.7 (10.0-20.0); CALCIUM 9.5 MG/DL (8.5-10.1); CHLORIDE 100 MMOL/L (99-107); GLUCOSE 79 MG/DL (70-104); INR 1.1 INR; POTASSIUM 3.8 MMOL/L (3.5-5.1); PROTHROMBIN TIME 11.9 SECONDS (9.0-12.0); SODIUM 138 MMOL/L (135-145); TOTAL CARBON DIOXIDE 29.5 MMOL/L (24-32); eCRCL 70 ML/MIN; eGFR > 90 ML/MIN
[2024-01-30] MEDS: nitroPRUSSIDE 0.2mg/mL in NS 100 ML IV SCH (17:39)
[2024-01-30 19:29] VITALS: BP 167/86; PULSE 85; RESP 15; O2SAT 93
== END 2024-01-30 19:05 | disposition left against medical advice (07) ==
LOC: ER 15:21
DX: I16.1 Hypertensive emergency (principal); R47.01 Aphasia; R51.9 Headache, unspecified; F03.90 Unspecified dementia, unspecified severity, without behavioral disturbance, psychotic disturbance, mood disturbance, and anxiety; F41.0 Panic disorder [episodic paroxysmal anxiety]; I10 Essential (primary) hypertension; K21.9 Gastro-esophageal reflux disease without esophagitis; G89.29 Other chronic pain; M54.9 Dorsalgia, unspecified; F41.9 Anxiety disorder, unspecified; F32.A Depression, unspecified; Z79.899 Other long term (current) drug therapy; Z79.82 Long term (current) use of aspirin; Z79.84 Long term (current) use of oral hypoglycemic drugs; Z88.8 Allergy status to other drugs, medicaments and biological substances; Z90.49 Acquired absence of other specified parts of digestive tract; Z90.710 Acquired absence of both cervix and uterus; Z56.0 Unemployment, unspecified
CPT/HCPCS: 36415; 70450; 71045; 80048; 82948; 84484; 85025; 85610; 85730; 93005; 96365; 96366; 96375; 99291; J0780; J3490